=== PATIENT | male | born 1940 | race American Indian/Alaskan Native ===

== ENCOUNTER 2019-08-19 15:55 | Emergency (ER) | payer SELFPAY ==
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
--- NOTE | 2019-08-19 19:28 | XRay Report ---
LUMBAR SPINE 2 VIEWS INDICATION / CLINICAL INFORMATION: back pain COMPARISON: None available. FINDINGS: BONES / JOINT(S): No acute fracture or subluxation. Mild/moderate degenerative disc disease scattered diffusely greatest at L4-L5. 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 ADDITIONAL FINDINGS: None. Signer Name: Francesco Bravo MD Signed: 08/19/2019 7:24 PM Workstation Name: [id number]
[2019-08-19 21:32] VITALS: BP 106/74
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
== END 2019-08-19 22:53 | disposition home or self-care (01) ==
LOC: ED 15:55
DX: M54.5 Low back pain (principal); I10 Essential (primary) hypertension; E11.9 Type 2 diabetes mellitus without complications; F17.200 Nicotine dependence, unspecified, uncomplicated; Z95.5 Presence of coronary angioplasty implant and graft
CPT/HCPCS: 72100